=== PATIENT | female | born 1980 | race African-American/Black ===

== ENCOUNTER 2017-03-22 19:48 | Emergency (ER) | payer OTHER ==
[~2017-03-22] VITALS: Ht 165.1 cm; Wt 76.2 kg
[2017-03-22 19:52] VITALS: BP 137/70
== END 2017-03-22 20:19 | disposition home or self-care (01) ==
LOC: ER 19:52
DX: R06.02 Shortness of breath (principal)
CPT/HCPCS: A4606; Z7610